=== PATIENT | male | born 1960 ===

== ENCOUNTER 2019-01-02 07:28 | Day surgery (SDC) | payer MEDICAID ==
[2019-01-02] MEDS ORDERED: Lactated Ringer's 500 ML IV ONE (08:06)
[2019-01-02 08:12] VITALS: BMI 22.6
[2019-01-02] MEDS ORDERED: Propofol 10 mg/ml Inj (20 ML) ONE (09:13)
[2019-01-02 09:34] VITALS: TEMP 97.3; O2SAT 100
[2019-01-02 09:51] VITALS: BP 140/80; PULSE 63; RESP 15
== END 2019-01-02 12:17 | disposition home or self-care (01) ==
LOC: H.ENDO 07:28
PROVIDERS: ATTEND Internal Medicine Gastroenterology
DX: Z12.11 Encounter for screening for malignant neoplasm of colon (principal); E11.9 Type 2 diabetes mellitus without complications; I10 Essential (primary) hypertension; K64.8 Other hemorrhoids
CPT/HCPCS: 45378; 82948; J2001; J2704; J7120